=== PATIENT | female | born 1960 | race Caucasian/White ===

== ENCOUNTER → 2017-07-03 | Outpatient (CLI) | payer BC ==
--- NOTE | 2017-07-03 10:40 | RAD ---
DATE: 07/03/2017 EXAM: DIGITAL DIAGNOSTIC BILATERAL HISTORY: Right breast pain COMPARISON: None available This study was interpreted with the benefit of Computerized Aided Detection (CAD). The breast parenchyma is heterogeneously dense, which could reduce sensitivity of mammography. Breast parenchyma level C. FINDINGS: No breast mass is identified. There are faint microcalcifications in the right breast in the upper outer quadrant. These are best delineated on a straight mediolateral magnification view. The extend over an area measuring at least 3 cm. They tend to be somewhat granular in character. No teacup type layering is seen in the lateral projection. In the left breast there is a benign type calcification present anteriorly, as well at several other faint microcalcifications, similar to those seen on the right. IMPRESSION: Indeterminate bilateral microcalcifications as described above. We will attempt to obtain the patient's outside studies for comparison, and an addendum report within the issued. BI-RADS CATEGORY: 0 INCOMPLETE: NEEDS ADDITIONAL IMAGING EVALUATION AND/OR PRIOR MAMMOGRAMS FOR COMPARISON. PQRS compliance statement: Patient information was entered into a reminder system with a target due date for the next mammogram. Mammography is a sensitive method for finding small breast cancers, but it does not detect them all and is not a substitute for careful clinical examination. A negative mammogram does not negate a clinically suspicious finding and should not result in delay in biopsying a clinically suspicious abnormality. "Our facility is accredited by the [employer] Mammography Program."
== END | disposition home or self-care (01) ==
LOC: MAMMO 09:29
PROVIDERS: ATTEND Advanced Practice Midwife
DX: N64.4 Mastodynia (principal)
CPT/HCPCS: G0204; 77066